=== PATIENT | female | born 1975 | race Caucasian/White ===

== ENCOUNTER 2018-10-14 14:06 | Emergency (ER) | payer MEDICAID ==
[~2018-10-14] VITALS: Ht 157.5 cm; Wt 130.2 kg
--- NOTE | 2018-10-14 14:16 | NUR ---
ED Nurse Note: PT WALKED IN TO ER TODAY FROM HOME. AOX4. PT C/O RIGHT POSTERIOR THIGH PAIN AFTER FALL X THIS AM. PT DENIES HEAD TRAUMA. LIMITED ROM OF RIGHT EXTREMITY BUT SENSATION AND CIRCULATION INTACT. CAP REFILL <3 SECONDS AND MUSCLE STRENGTH 5/5.
--- NOTE | 2018-10-14 15:00 | NUR ---
ED Nurse Note: ICE PACK PROVIDED FOR PT.
--- NOTE | 2018-10-14 15:15 | NUR ---
ED Nurse Note: US AT BEDSIDE.
--- NOTE | 2018-10-14 15:35 | NUR ---
ED Nurse Note: PT TO CT VIA WHEELCHAIR.
--- NOTE | 2018-10-14 15:40 | Emergency Room Report ---
History of Present Illness General Chief Complaint: Lower Extremity Injury Source: Patient (Cleveland Burt) Present Illness HPI 43-year-old female with history of chronic low back pain and injury and lumbar spine in July 2017. Down here complaining of pain and right hip and right thigh right knee and swelling of the right foot after a fall this morning on the carpet. Patient reports that she has not regained full sensation in her leg since the surgery however does morning she started feeling burning sensation right thigh and right knee and swelling in the right foot. Since of ibuprofen with minimal relief. He unable to express whether there is any numbness or tingling. This relating the burning sensation pain 10 out of 10. Denies radiation. Denies all other associated symptoms such as chest pain, shortness of breath, palpitation, abdominal pain, headache and dizziness. Head injury, and history of diabetes or neuropathic pain. Patient's daughter reports tightness in the right knee and righti after the fall. Unable to see the location where patient feels the burning as patient is wheelchair bound and unable to remove her tight pants. Patient is in no apparent distress (Cleveland Burt) Allergies: Coded Allergies: No Known Allergies (Unverified , 10/14/18) Patient History Past Medical History: see triage record Past Surgical History: other - lumbar Last Menstrual Period: 10/09/18 Now: No Immunizations: UTD Reviewed Nursing Documentation: PMH: Agreed; PSxH: Agreed (Cleveland Burt) Nursing Documentation-PMH Past Medical History: No History, Except For Hx Cardiac Problems: No - GRAVE'S DISEASE Hx Asthma: Yes (Cleveland Burt) Review of Systems All Other Systems: negative except mentioned in HPI (Cleveland Burt) Physical Exam Vital Signs Date Time Temp Pulse Resp B/P (MAP) Pulse Ox O2 Delivery O2 Flow Rate FiO2 10/14/18 14:15 98.1 100 18 127/88 95 Room Air Sp02 EP Interpretation: reviewed, normal General Appearance: normal inspection, well appearing, GCS 15, non-toxic Head: normocephalic, atraumatic Eyes: bilateral eye normal inspection, bilateral eye PERRL ENT: normal ENT inspection, normal pharynx Neck: normal inspection, supple Respiratory: normal inspection, chest non-tender, no rhonchi, no respiratory distress, no wheezing Cardiovascular #1: normal inspection, regular rate, rhythm, no murmur, normal capillary refill, edema - right pedal edema with faint pulse Cardiovascular #2: 2+ dorsalis pedis (R), 2+ dorsalis pedis (L) Gastrointestinal: normal inspection, non tender, soft Rectal: deferred Genitourinary: deferred Musculoskeletal: no calf tenderness, decreased range of motion, swelling - right foot, tender - tenderness over right fourth and fifth digit of the foot Neurologic: normal inspection, alert, oriented x3, responsive Psychiatric: normal inspection, judgement/insight normal Skin: normal inspection, normal color, no rash Lymphatic: normal inspection, no adenopathy (Cleveland Burt) Medical Decision Making PA Attestation All diagnoses and treatment plans are reviewed and discussed the patient's supervising physician Dr. Sparks (Cleveland Burt) Diagnostic Impression: Primary Impression: Contusion of right hip Additional Impressions: Contusion of right knee Contusion of right foot ER Course 43-year-old female with history of chronic low back pain and injury and lumbar spine in July 2017. Down here complaining of pain and right hip and right thigh right knee and swelling of the right foot after a fall this morning on the carpet. Patient reports that she has not regained full sensation in her leg since the surgery however does morning she started feeling burning sensation right thigh and right knee and swelling in the right foot. Since of ibuprofen with minimal relief. He unable to express whether there is any numbness or tingling. This relating the burning sensation pain 10 out of 10. Denies radiation. Denies all other associated symptoms such as chest pain, shortness of breath, palpitation, abdominal pain, headache and dizziness. Head injury, and history of diabetes or neuropathic pain. Patient's daughter reports tightness in the right knee and righti after the fall. Unable to see the location where patient feels the burning as patient is wheelchair bound and unable to remove her tight pants. Patient is in no apparent distress Ddx considered but are not limited to right hip fracture, compression of lumbar spine, right foot fracture, neuropathy, DVT, right meniscus tear, right knee fracture Vital signs: are WNL, pt. is afebrile H&PE are most consistent with contusion of lumbar spine, contusion of head on the right side, right knee contusion, right foot contusion ORDERS: CT scan of the right hip contrast, ct scan of lumbar spine s, ct scan of right knee no contrast, x-ray of right foot, venous doppler ultrasound of the right lower extremity, ibuprofen 400, naproxen, venous Doppler ultrasound ED INTERVENTIONS: ibuprofen DISCHARGE: At this time pt. is stable for d/c to home. Will provide printed patient care instructions, and any necessary prescriptions. Care plan and follow up instructions have been discussed with the patient prior to discharge.CT scan could not be performed due to patient body mass index. should follow-up with a primary care provider and also specialist due to her neuropathy for further imaging and possible MRI. Patient to be tested for other possible causes of fluid retention in right foot. (Cleveland Burt) Other X-Ray Diagnostic Results Other X-Ray Diagnostic Results : X-Ray ordered: L spine, right hip, right knee and right foot # of Views/Limited Vs Complete: Complete Indication: Swelling EP Interpretation: Yes PA Xray: Interpretation reviewed, by supervising MD, and agrees with findings. Interpretation: no dislocation, no soft tissue swelling, no fractures Impression: No acute disease Electronically Signed by: Cleveland CROFT Scribe Text EXAM: XR Right Foot Complete, 3 or More Views CLINICAL HISTORY: PAIN TECHNIQUE: Frontal, lateral and oblique views of the right foot. COMPARISON: No relevant prior studies available. FINDINGS: Bones/joints: No acute displaced fracture or dislocation. Degenerative changes. Soft tissues: Soft tissue swelling. No radiopaque foreign body. IMPRESSION: No acute displaced fracture or dislocation. EXAM: XR Lumbar Spine, 2 or 3 Views CLINICAL HISTORY: TRAUMA TECHNIQUE: Frontal and lateral views of the lumbar spine. COMPARISON: No relevant prior studies available. FINDINGS: Vertebrae: No acute displaced fracture or subluxation. Disc spaces: No acute findings. No significant narrowing. Soft tissues: Unremarkable. IMPRESSION: No acute displaced fracture or subluxation. EXAM: XR Right Hip, 2 or 3 Views CLINICAL HISTORY: TRAUMA TECHNIQUE: Two or three views of the right hip. COMPARISON: No relevant prior studies available. FINDINGS: Bones/joints: No acute displaced fracture or dislocation. Soft tissues: Unremarkable. IMPRESSION: No acute displaced fracture or dislocation. EXAM: XR Right Knee, 3 views CLINICAL HISTORY: TRAUMA TECHNIQUE: Three views of the right knee. COMPARISON: No relevant prior studies available. FINDINGS: Bones/joints: No acute displaced fracture or dislocation. No significant joint effusion. Soft tissues: Unremarkable. IMPRESSION: No acute displaced fracture or dislocation. (Cleveland Burt) Other X-Ray Diagnostic Results #1: Electronically Signed by: P A documentation of Xray reviewed by me and is accurate, Adrián Sparks MD Other X-Ray Diagnostic Results #2: Electronically Signed by: P A documentation of Xray reviewed by me and is accurate, Adrián Sparks MD Other X-Ray Diagnostic Results #3: Electronically Signed by: P A documentation of Xray reviewed by me and is accurate, Adrián Sparks MD Other X-Ray Diagnostic Results #4: Electronically Signed by: P A documentation of Xray reviewed by me and is accurate, Adrián Sparks MD (Adrián Sparks MD) CT/MRI/US Diagnostic Results CT/MRI/US Diagnostic Results : Imaging Test Ordered: venous after ultrasound of the right lower extremity Impression FINDINGS: Deep veins: Unremarkable. No DVT in the visualized common femoral, superficial femoral, or popliteal veins. The veins demonstrate normal color flow, are normally compressible, with normal phasic flow and/or augmentation response. Superficial veins: Unremarkable. No thrombus in the visualized great saphenous vein. Soft tissues: No popliteal cyst. IMPRESSION: No evidence of DVT in the visualized venous segments of the right lower extremity. (Cleveland Burt) Last Vital Signs Date Time Temp Pulse Resp B/P (MAP) Pulse Ox O2 Delivery O2 Flow Rate FiO2 10/14/18 14:15 98.1 100 18 127/88 95 Room Air (Cleveland Burt) Disposition: HOME, SELF-CARE Condition: Stable Scripts Naproxen* (NAPROXEN*) 500 Mg Tablet 500 MG ORAL TWICE A DAY, #30 TAB Prov: Cleveland Burt 10/14/18 Referrals: NOT CHOSEN IPA/,REFERRING (PCP) Patient Instructions: Contusion, Foot Contusion Additional Instructions: follow with her primary care provider for further imaging and tingling or numbness continues MRI may be needed. Cleveland Burt Oct 14, 2018 15:40 Adrián Sparks MD Oct 15, 2018 01:37
--- NOTE | 2018-10-14 16:10 | NUR ---
Magdiel awad in EDM - 10/14/18 at 1613 by LARRY ED Nurse Note: PT'S ORAL TEMP: 102.4F. LANG CABRERA.
--- NOTE | 2018-10-14 16:20 | NUR ---
ED Nurse Note: PT BACK FROM CT.
--- NOTE | 2018-10-14 16:24 | Diagnostic Imaging Report ---
EXAM: US Duplex Right Lower Extremity Veins CLINICAL HISTORY: PAIN TECHNIQUE: Real-time duplex ultrasound scan of the right lower extremity veins integrating B-mode two-dimensional vascular structure, Doppler spectral analysis, color flow Doppler imaging and compression. COMPARISON: No relevant prior studies available. FINDINGS: Deep veins: Unremarkable. No DVT in the visualized common femoral, superficial femoral, or popliteal veins. The veins demonstrate normal color flow, are normally compressible, with normal phasic flow and/or augmentation response. Superficial veins: Unremarkable. No thrombus in the visualized great saphenous vein. Soft tissues: No popliteal cyst. IMPRESSION: No evidence of DVT in the visualized venous segments of the right lower extremity.
--- NOTE | 2018-10-14 17:29 | Diagnostic Imaging Report ---
EXAM: XR Right Foot Complete, 3 or More Views CLINICAL HISTORY: PAIN TECHNIQUE: Frontal, lateral and oblique views of the right foot. COMPARISON: No relevant prior studies available. FINDINGS: Bones/joints: No acute displaced fracture or dislocation. Degenerative changes. Soft tissues: Soft tissue swelling. No radiopaque foreign body. IMPRESSION: No acute displaced fracture or dislocation.
--- NOTE | 2018-10-14 17:30 | Diagnostic Imaging Report ---
EXAM: XR Right Knee, 3 views CLINICAL HISTORY: TRAUMA TECHNIQUE: Three views of the right knee. COMPARISON: No relevant prior studies available. FINDINGS: Bones/joints: No acute displaced fracture or dislocation. No significant joint effusion. Soft tissues: Unremarkable. IMPRESSION: No acute displaced fracture or dislocation.
--- NOTE | 2018-10-14 17:30 | Diagnostic Imaging Report ---
EXAM: XR Lumbar Spine, 2 or 3 Views CLINICAL HISTORY: TRAUMA TECHNIQUE: Frontal and lateral views of the lumbar spine. COMPARISON: No relevant prior studies available. FINDINGS: Vertebrae: No acute displaced fracture or subluxation. Disc spaces: No acute findings. No significant narrowing. Soft tissues: Unremarkable. IMPRESSION: No acute displaced fracture or subluxation.
--- NOTE | 2018-10-14 17:30 | Diagnostic Imaging Report ---
EXAM: XR Right Hip, 2 or 3 Views CLINICAL HISTORY: TRAUMA TECHNIQUE: Two or three views of the right hip. COMPARISON: No relevant prior studies available. FINDINGS: Bones/joints: No acute displaced fracture or dislocation. Soft tissues: Unremarkable. IMPRESSION: No acute displaced fracture or dislocation.
[2018-10-14] MEDS ORDERED: NAPROXEN500 M2 ORAL (17:33)
[2018-10-14 17:39] VITALS: BP 126/84
--- NOTE | 2018-10-14 17:40 | NUR ---
ER Nurse Note: PT LAYING PEACEFULLY IN BED IN NAD. AOX4. PRESCRIPTIONS AND DISCHARGE PAPERWORK EXPLAINED TO PT. PT VERBALIZES UNDERSTANDING AND DENIES ANY QUESTIONS AT THIS TIME. PRESCRIPTIONS AND DISCHARGE PAPERWORK GIVEN TO PT AND ID WRISTBAND REMOVED. PT WALKED OUT OF ER WITH STEADY GAIT WITH ALL BELONGINGS.
== END 2018-10-14 17:45 | disposition home or self-care (01) ==
LOC: EMR 14:50
DX: S70.01XA Contusion of right hip, initial encounter (principal); S90.31XA Contusion of right foot, initial encounter; S80.01XA Contusion of right knee, initial encounter; W19.XXXA Unspecified fall, initial encounter; Y92.9 Unspecified place or not applicable; G89.29 Other chronic pain; J45.909 Unspecified asthma, uncomplicated; M54.5 Low back pain
CPT/HCPCS: 72020; 93971; 99284